=== PATIENT | female | born 1985 | race African-American/Black ===

== ENCOUNTER 2019-04-01 23:52 | Emergency (ER) | payer OTHER, MEDICAID ==
--- NOTE | 2019-04-02 02:00 | ER Document Report ---
ED General - General Chief Complaint: Headache Stated Complaint: MIGRAINE Time Seen by Provider: 04/02/19 01:33 Primary Care Provider: LILLIAN MARQUEZ [Primary Care Provider] - Follow up as needed Notes: 33-year-old black female arrives with a female friend with chief complaint of having nausea and vomiting today and diffuse left temporal headache with left eye pain and photophobia and history of similar symptoms in 2012 when she had surgery and open hour while she was in the [place]. She has not had such a severe migraine since that time. She denies any sore throat nuchal rigidity cough or cold abdominal pain. She does have chronic low back pain and upper back pain and chronic neck pain. Patient reports this was present since [employer] . Patient reports she has no sick animals but does have a rodolfo a bearded lizard a painted turtle and a snake and chickens and ducks which she does feed. The patient denies any diarrhea. TRAVEL OUTSIDE OF THE [place] IN LAST 30 DAYS: No - HPI Onset: This morning Onset/Duration: Persistent Quality of pain: Achy Severity: Mild Pain Level: 1 Associated symptoms: Headache, Nausea, Vomiting Exacerbated by: Movement Relieved by: Remaining still Similar symptoms [facility]: [facility] Recently seen / treated by doctor: No - Related Data Allergies/Adverse Reactions: hydromorphone [From Dilaudid] Adverse Reaction (Verified 04/02/19 03:34) Past Medical History - General Information source: Patient - Social History Smoking Status: Current Every Day Smoker Cigarette use (# per day): Yes Chew tobacco use (# tins/day): No Smoking Education Provided: Yes Frequency of alcohol use: None Drug Abuse: None Lives with: Family Family History: Reviewed & Not Pertinent Patient has suicidal ideation: No Patient has homicidal ideation: No Review of Systems - Review of Systems Constitutional: See HPI, Fever, Malaise, Weakness EENT: See HPI, Eye pain, Blurred vision, Sinus discharge Cardiovascular: No symptoms reported Respiratory: No symptoms reported Gastrointestinal: No symptoms reported Genitourinary: No symptoms reported Female Genitourinary: No symptoms reported Musculoskeletal: No symptoms reported Skin: No symptoms reported Hematologic/Lymphatic: No symptoms reported Neurological/Psychological: See HPI, Headaches Physical Exam - Vital signs Vitals: Temp Pulse Resp BP Pulse Ox 98.1 F 79 17 128/80 H 100 04/02/19 00:27 04/02/19 00:27 04/02/19 00:27 04/02/19 00:27 04/02/19 00:27 Interpretation: Normal - General General appearance: Alert In distress: Mild - HEENT Head: Normocephalic Eyes: Normal Conjunctiva: Normal Cornea: Normal Extraocular movements intact: Yes Eyelashes: Normal Pupils: PERRL Sinus: Frontal, Tenderness Nasal: Normal Mouth/Lips: Normal Mucous membranes: Normal Pharynx: Normal Neck: Normal - Respiratory Respiratory status: No respiratory distress Chest status: Nontender Breath sounds: Normal Chest palpation: Normal - Cardiovascular Rhythm: Regular Heart sounds: Normal auscultation Murmur: No Friction rub: No Gold's crunch: No - Abdominal Inspection: Normal Distension: No distension Bowel sounds: Normal Tenderness: Nontender Organomegaly: No organomegaly - Back Back: Normal - Extremities General upper extremity: Normal inspection General lower extremity: Normal inspection - Neurological Neuro grossly intact: Yes Cognition: Normal Orientation: AAOx4 Kvng Coma Scale Eye Opening: Spontaneous Kvng Coma Scale Verbal: Oriented Speech: Normal Cranial nerves: Normal Cerebellar coordination: Normal Motor strength normal: LUE, RUE, LLE, RLE - Psychological Associated symptoms: Normal affect - Skin Skin Temperature: Warm Skin Moisture: Dry Course - Vital Signs Vital signs: Temp Pulse Resp BP Pulse Ox 98.1 F 79 17 128/80 H 100 04/02/19 00:27 04/02/19 00:27 04/02/19 00:27 04/02/19 00:27 04/02/19 00:27 - Laboratory Result Diagrams: 04/02/19 02:00 04/02/19 02:00 Laboratory results interpreted by me: 04/02/19 04/02/19 02:00 02:00 Seg Neutrophils % 81.1 H Urine Blood MODERATE H Ur Leukocyte Esterase MODERATE H - Diagnostic Test Radiology reviewed: Reports reviewed Critical Care Note - Critical Care Note Total time excluding time spent on procedures (mins): 90 Comments: I rechecked patient's condition at 0 258 and she advises her headache has improved but still has some positive photophobia. I advised her of the lab reports and of the fact that she will be receiving some antibiotics IV; patient around 0 315 exhibited left periorbital allergic edema after Dilaudid Discharge - Discharge Clinical Impression: Allergic dermatitis Cephalgia Qualifiers: Headache type: unspecified Headache chronicity pattern: acute headache Intractability: not intractable Qualified Code(s): R51 - Headache UTI (urinary tract infection) Qualifiers: Urinary tract infection type: acute cystitis Hematuria presence: without hematuria Qualified Code(s): N30.00 - Acute cystitis without hematuria Condition: Good Disposition: HOME, SELF-CARE Additional Instructions: Follow-up with personal doctor this week return to ER as needed take medicines as directed encourage fluids; alert pharmacy @ dilaudid allergy Prescriptions: Ciprofloxacin HCl [Cipro 500 mg Tablet] 500 mg PO BID #20 tablet Cyproheptadine HCl [Periactin 4 Mg Tablet] 4 mg PO HSP PRN #30 tablet PRN Reason: Referrals: [facility] [Primary [facility]] - Follow up as needed
[2019-04-02] MEDS ORDERED: PROMETHAZINE HCL INJ 25 MG/1 ML VIAL IV ONE (02:06)
[2019-04-02] MEDS ORDERED: HYDROMORPHONE HCL INJ/PF 2 MG/ML AMPULE IV ONE (02:06)
[2019-04-02] MEDS ORDERED: NORMAL SALINE 1000 ML 1,000 ML IV ONE (02:07)
[2019-04-02 02:14] LABS: ABSOLUTE LYMPHOCYTES (AUTO) 1.3 10^3/uL (0.5-4.7); ABSOLUTE MONOCYTES (AUTO) 0.4 10^3/uL (0.1-1.4); ABSOLUTE NEUT (AUTO) 7.6 10^3/uL (1.7-8.2); BASOPHILS % (AUTO) 0.3 % (0-2); EOSINOPHILS % (AUTO) 0.4 % (0-6); HEMATOCRIT 38.3 % (36.0-47.0); HEMOGLOBIN 13.2 g/dL (12.0-15.5); LYMPHOCYTES % (AUTO) 13.8 % (13-45); MEAN CORPUSCULAR HEMOGLOBIN 29.2 pg (27.0-33.4); MEAN CORPUSCULAR HGB CONC 34.5 g/dL (32.0-36.0); MEAN CORPUSCULAR VOLUME 85 fl (80-97); MONOCYTES % (AUTO) 4.4 % (3-13); PLATELET COUNT 243 10^3/uL (150-450); RED BLOOD COUNT 4.53 10^6/uL (3.72-5.28); RED CELL DISTRIBUTION WIDTH 13.9 % (11.5-14.0); SEGMENTED NEUTROPHILS % (AUTO) 81.1 % (42-78); TOTAL CELLS COUNTED % (AUTO) 100 %; WHITE BLOOD COUNT 9.4 10^3/uL (4.0-10.5)
[2019-04-02 02:24] LABS: APPEARANCE,URINE SLIGHTLY-CLOUDY; BILIRUBIN,URINE NEGATIVE (NEGATIVE); COLOR,URINE STRAW; GLUCOSE, URINE NEGATIVE (NEGATIVE); KETONES,URINE NEGATIVE (NEGATIVE); LEUKOCYTE ESTERASE,URINE MODERATE (NEGATIVE); NITRITE,URINE NEGATIVE (NEGATIVE); PROTEIN,URINE NEGATIVE (NEGATIVE); URINE SPECIFIC GRAVITY 1.004; UROBILINOGEN,URINE NEGATIVE mg/dL (<2.0)
[2019-04-02 02:32] LABS: URINE AMPHETAMINES SCREEN NEGATIVE; URINE BARBITURATES SCREEN NEGATIVE; URINE BENZODIAZEPINES SCREEN NEGATIVE; URINE COCAINE SCREEN NEGATIVE; URINE MARIJUANA (THC) SCREEN NEGATIVE; URINE METHADONE SCREEN NEGATIVE; URINE PHENCYCLIDINE SCREEN NEGATIVE
[2019-04-02 02:37] LABS: ALBUMIN 3.9 g/dL (3.5-5.0); ALKALINE PHOSPHATASE 74 U/L (38-126); ANION GAP 8 (5-19); ASPARTATE AMINO TRANSFERASE 19 U/L (14-36); BILIRUBIN,TOTAL 0.3 mg/dL (0.2-1.3); BLOOD UREA NITROGEN 9 mg/dL (7-20); CALCIUM 9.3 mg/dL (8.4-10.2); CARBON DIOXIDE 26 mmol/L (22-30); CHLORIDE 105 mmol/L (98-107); GLUCOSE 104 mg/dL (75-110); POTASSIUM 4.1 mmol/L (3.6-5.0); TOTAL PROTEIN 7.2 g/dL (6.3-8.2)
[2019-04-02] MEDS ORDERED: CEFTRIAXONE 1 GM/D5W RTU 1 GM/50 ML RTUPB IV ONE (02:57)
[2019-04-02 02:59] LABS: A TYPE INFLUENZA AG NEGATIVE (NEGATIVE); B INFLUENZA AG NEGATIVE (NEGATIVE)
--- NOTE | 2019-04-02 03:25 | RADIOLOGY REPORT (SQ) ---
EXAM DESCRIPTION: XR CHEST 1 VIEW COMPLETED DATE/TME: 04/02/2019 02:05 CLINICAL HISTORY: 33 years Female, wallace COMPARISON: None. NUMBER OF VIEWS/TECHNIQUE: 1/AP FINDINGS: Increased lung volume, clear parenchyma, normal cardiac silhouette, and intact bony thorax. IMPRESSION: No acute cardiopulmonary findings.
[2019-04-02] MEDS ORDERED: DIPHENHYDRAMINE HCL 50 MG/ML VIAL IV ONE (03:28)
--- NOTE | 2019-04-02 04:01 | RADIOLOGY REPORT (SQ) ---
EXAM: CT Head and Cervical Spine Without Intravenous Contrast EXAM DATE/TIME: 04/02/2019 3:09 AM CLINICAL HISTORY: The patient is 33 years old and is Female; wallace TECHNIQUE: Axial computed tomography images of the head/brain and cervical spine without intravenous contrast. Sagittal and coronal reformatted images were created and reviewed. This CT exam was performed using one or more of the following dose reduction techniques: automated exposure control, adjustment of the mA and/or kV according to patient size, and/or use of iterative reconstruction technique. COMPARISON: No relevant prior studies available. FINDINGS: BRAIN: Unremarkable. No obvious signs of acute infarct. No evidence of intracranial mass. VENTRICLES: Unremarkable. No ventriculomegaly. SKULL: No acute fracture. SINUSES: Unremarkable as visualized. No acute sinusitis. MASTOID AIR CELLS: Unremarkable as visualized. No mastoid effusion. VERTEBRAE: Unremarkable. No acute fracture. Normal alignment. DISCS/SPINAL CANAL/NEURAL FORAMINA: Intervertebral disk heights are well-maintained. No spinal canal stenosis appreciated. SOFT TISSUES: No acute findings visualized. No significant soft tissue swelling or subcutaneous hematoma formation. IMPRESSION: No acute findings in the brain or cervical spine.
[2019-04-02 04:38] VITALS: BP 125/73
== END 2019-04-02 04:44 | disposition home or self-care (01) ==
LOC: ER 23:52
DX: N30.00 Acute cystitis without hematuria (principal); L23.9 Allergic contact dermatitis, unspecified cause; R51 Headache; R11.2 Nausea with vomiting, unspecified; H57.12 Ocular pain, left eye; R53.1 Weakness; R50.9 Fever, unspecified; F17.210 Nicotine dependence, cigarettes, uncomplicated; Z88.6 Allergy status to analgesic agent
CPT/HCPCS: 99285; 96374; 96375; 36415; 87040; 87070; 87880; 85025; 80053; 81001; 80307; 87804; 71045; 70450; 72125; J1200; J1170; J2550; J7030; J0696

== ENCOUNTER 2019-04-07 19:33 | Emergency (ER) | payer OTHER, MEDICAID ==
[2019-04-07] MEDS ORDERED: MAG HYDROX/AL HYDROX/SIMETH SUSP 30 ML UDCUP PO ONE (20:21)
[2019-04-07] MEDS ORDERED: METOCLOPRAMIDE HCL ORAL SOLN 10 MG/10 ML UDCUP PO ONE (20:21)
[2019-04-07] MEDS ORDERED: LIDOCAINE 2% VISCOUS SOLN 15 ML UDCUP PO ONE (20:21)
--- NOTE | 2019-04-07 20:21 | ER Document Report ---
ED Medical Screen (RME) - General Chief Complaint: Chest Pain Stated Complaint: CHEST PAIN Time Seen by Provider: 04/07/19 20:11 Primary Care Provider: LILLIAN MARQUEZ [Primary Care Provider] - Follow up as needed Notes: Patient is a 33-year-old female who presents to the emergency department with a chief complaint of "chest burning." States that she has had her symptoms on and off. She was evaluated in the emergency department on Monday and was diagnosed with a urinary tract infection. Patient states that she has been taking her medication as prescribed. Exam: S1, S2. I have greeted and performed a rapid initial assessment of this patient. A comprehensive ED assessment and evaluation of the patient, analysis of test results and completion of medical decision making process will be conducted by an additional ED providers. TRAVEL OUTSIDE OF THE [place] IN LAST 30 DAYS: No - Related Data Allergies/Adverse Reactions: hydromorphone [From Dilaudid] Adverse Reaction (Verified 04/02/19 03:34) Past Medical History - Social History Chew tobacco use (# tins/day): No Frequency of alcohol use: None Drug Abuse: None Physical Exam - Vital signs Vitals: Temp Pulse Resp BP Pulse Ox 98.3 F 77 16 150/86 H 100 04/07/19 19:58 04/07/19 19:58 04/07/19 19:58 04/07/19 19:58 04/07/19 19:58 Course - Vital Signs Vital signs: Temp Pulse Resp BP Pulse Ox 98.3 F 77 16 150/86 H 100 04/07/19 19:58 04/07/19 19:58 04/07/19 19:58 04/07/19 19:58 04/07/19 19:58 Doctor's Discharge - Discharge Referrals: JIMMY,LILLIAN [Primary Care Provider] - Follow up as needed
[2019-04-07 20:53] LABS: ABSOLUTE EOSINOPHILS # (AUTO) 0.1 10^3/uL (0.0-0.6); ABSOLUTE LYMPHOCYTES (AUTO) 1.1 10^3/uL (0.5-4.7); ABSOLUTE MONOCYTES (AUTO) 0.4 10^3/uL (0.1-1.4); ABSOLUTE NEUT (AUTO) 4.4 10^3/uL (1.7-8.2); BASOPHILS % (AUTO) 0.1 % (0-2); EOSINOPHILS % (AUTO) 1.2 % (0-6); HEMOGLOBIN 12.3 g/dL (12.0-15.5); LYMPHOCYTES % (AUTO) 18.2 % (13-45); MEAN CORPUSCULAR HEMOGLOBIN 29.9 pg (27.0-33.4); MEAN CORPUSCULAR HGB CONC 35.3 g/dL (32.0-36.0); MEAN CORPUSCULAR VOLUME 85 fl (80-97); MONOCYTES % (AUTO) 6.8 % (3-13); PLATELET COUNT 214 10^3/uL (150-450); RED BLOOD COUNT 4.13 10^6/uL (3.72-5.28); RED CELL DISTRIBUTION WIDTH 13.9 % (11.5-14.0); SEGMENTED NEUTROPHILS % (AUTO) 73.7 % (42-78); TOTAL CELLS COUNTED % (AUTO) 100 %
--- NOTE | 2019-04-07 21:04 | RADIOLOGY REPORT (SQ) ---
XR CHEST 2 VIEWS CLINICAL STATEMENT: chest "burning" COMPARISON: 04/02/2019 FINDINGS: Cardiomediastinal silhouette is within normal limits. There is no focal lung consolidation or pleural effusion. No evidence of pulmonary edema or pneumothorax. IMPRESSION: No acute cardiopulmonary disease.
[2019-04-07 21:13] LABS: ALBUMIN 4.3 g/dL (3.5-5.0); ALKALINE PHOSPHATASE 87 U/L (38-126); ANION GAP 10 (5-19); ASPARTATE AMINO TRANSFERASE 20 U/L (14-36); BILIRUBIN,TOTAL 0.4 mg/dL (0.2-1.3); BLOOD UREA NITROGEN 8 mg/dL (7-20); CALCIUM 9.3 mg/dL (8.4-10.2); CARBON DIOXIDE 25 mmol/L (22-30); CHLORIDE 104 mmol/L (98-107); GLUCOSE 80 mg/dL (75-110); POTASSIUM 3.5 mmol/L (3.6-5.0); TOTAL PROTEIN 7.9 g/dL (6.3-8.2)
--- NOTE | 2019-04-07 22:49 | EKG REPORT ---
SEVERITY:- NORMAL ECG - SINUS RHYTHM : Confirmed by: Pastora Arenas MD 07-Apr-2019 22:49:17
--- NOTE | 2019-04-07 23:47 | ER Document Report ---
ED General - General Chief Complaint: Chest Pain Stated Complaint: CHEST PAIN Time Seen by Provider: 04/07/19 20:11 Primary Care Provider: DENEEN MERCER MD [ACTIVE STAFF] - Follow up as needed NILA PACE MD [ACTIVE STAFF] - Follow up as needed [facility] [Primary [facility]] - Follow up as needed Mode of Arrival: Ambulatory Information source: Patient TRAVEL OUTSIDE OF THE [place] IN LAST 30 DAYS: No - HPI Onset: Other - over the last week Onset/Duration: Gradual Quality of pain: Sharp Severity: Mild Pain Level: 2 Associated symptoms: Nonproductive cough Exacerbated by: Denies Relieved by: Other - movement of her left arm sometimes helps with the pain Similar symptoms previously: No Recently seen / treated by doctor: No Notes: 33 year old female with no significant PMH here for one week of left sided chest pain. The patient says the pain feels like a sharp burning sensation. She denies trauma to her chest, nausea, vomiting, sweating, fevers, chills, shortness of b reath but she does have a mild cough. The patient has had a right sided breast mass which needed resection in the past (it ended up being non-malignant). The patient has not felt any lumps or bumps on the left. - Related Data Allergies/Adverse Reactions: hydromorphone [From Dilaudid] Adverse Reaction (Verified 04/07/19 20:57) Past Medical History - General Information source: Patient - Social History Smoking Status: Never Smoker Chew tobacco use (# tins/day): No Frequency of alcohol use: None Drug Abuse: None Lives with: Alone Family History: Reviewed & Not Pertinent Patient has suicidal ideation: No Patient has homicidal ideation: No Review of Systems - Review of Systems Constitutional: No symptoms reported EENT: No symptoms reported Cardiovascular: Chest pain - left sided Respiratory: Cough Gastrointestinal: No symptoms reported Genitourinary: No symptoms reported Female Genitourinary: No symptoms reported Musculoskeletal: No symptoms reported Skin: No symptoms reported Hematologic/Lymphatic: No symptoms reported Neurological/Psychological: No symptoms reported -: Yes All other systems reviewed and negative Physical Exam - Vital signs Vitals: Temp Pulse Resp BP Pulse Ox 98.3 F 77 16 150/86 H 100 04/07/19 19:58 04/07/19 19:58 04/07/19 19:58 04/07/19 19:58 04/07/19 19:58 - Notes Notes: GENERAL: Well-appearing, well-nourished and in no acute distress. HEAD: Atraumatic, normocephalic. EYES: Pupils equal round and reactive to light, extraocular movements intact, sclera anicteric, conjunctiva are normal. ENT: Nares patent, oropharynx clear without exudates. Moist mucous membranes. NECK: Normal range of motion, supple without lymphadenopathy or JVD. LUNGS: Breath sounds clear to auscultation bilaterally and equal. No wheezes rales or rhonchi. HEART: Regular rate and rhythm without murmurs, rubs or gallops. CHEST: mildly tender over left anterior chest wall with no palpable masses. No breast masses felt either in this area. ABDOMEN: Soft, nontender, normoactive bowel sounds. No guarding, no rebound. No masses appreciated. EXTREMITIES: Normal range of motion, no pitting or edema. No clubbing or cyanosis. NEUROLOGICAL: Cranial nerves II through XII grossly intact. Normal speech, normal gait. PSYCH: Normal mood, normal affect. SKIN: Warm, Dry, normal turgor, no rashes or lesions noted. Course - Re-evaluation Re-evalutation: 04/07/19 23:55 The patient has had 1 week of left sided anterior chest pain. She looks very well in the ER, she is PERC negative (making PE unlikely) and she is low risk for ACS (EKG and Trop ordered in triage completely normal). Patient likely has musculoskeletal chest pain as it is made worse with palpation. No breast or chest masses palpated by me on exam. Chest Xray normal in appearance today. Will prescribe Naproxen and refer patient to a PCP. - Vital Signs Vital signs: Temp Pulse Resp BP Pulse Ox 98.3 F 77 19 150/86 H 100 04/07/19 19:58 04/07/19 19:58 04/07/19 22:00 04/07/19 19:58 04/07/19 22:00 - Laboratory Result Diagrams: 04/07/19 20:37 04/07/19 20:37 Laboratory results interpreted by me: 04/07/19 04/07/19 20:37 20:37 Hct 35.0 L Potassium 3.5 L - Diagnostic Test Radiology reviewed: Image reviewed, Reports reviewed - EKG Interpretation by Me EKG shows normal: Sinus rhythm, [place], Intervals, QRS Complexes, ST-T Waves Rate: Normal Rhythm: NSR Discharge - Discharge Clinical Impression: Costochondral pain Chest pain Qualifiers: Chest pain type: unspecified Qualified Code(s): R07.9 - Chest pain, unspecified Condition: Stable Disposition: HOME, SELF-CARE Instructions: Chest Wall Pain ([facility]), Costochondritis ([facility]), Chest Pain of Unclear Cause ([facility]) Additional Instructions: Use Naproxen for pain along with over the counter Tylenol and a heating pad. Follow up with one of the primary care doctors listed or with a primary care doctor of your choosing for further work up. You had blood work, a chest xray, and an EKG in the ER today. Prescriptions: Naproxen 500 mg PO BID PRN #14 tablet PRN Reason: Referrals: [facility] [Primary Care [facility]] - Follow up as needed DENEEN MERCER MD [ACTIVE STAFF] - Follow up as needed NILA PACE MD [ACTIVE STAFF] - Follow up as needed
[2019-04-08 00:41] VITALS: BP 132/91
== END 2019-04-08 00:41 | disposition home or self-care (01) ==
LOC: ER 19:33
DX: R07.1 Chest pain on breathing (principal); R07.9 Chest pain, unspecified; R05 Cough; Z88.8 Allergy status to other drugs, medicaments and biological substances
CPT/HCPCS: 93005; 99285; 36415; 85025; 80053; 84484; 71046; 93010; J3490

== ENCOUNTER → 2020-02-19 | Outpatient (CLI) | payer MEDICAID ==
--- NOTE | 2020-02-19 11:40 | WOMENS IMAGING REPORT ---
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 TECHNIQUE: Dynamic and static herr-scale images acquired of the thyroid gland. Selected additional c olor/power Doppler images recorded. All images stored to PACS. LIMITATIONS: None. FINDINGS: RIGHT LOBE: Normal size. Homogeneous echotexture. There are 2 closely opposed similar-ap pearing isoechoic solid nodules with smooth margins, both approximately 15 x 12 x 12 mm. TI-RADS 3. LEFT LOBE: Normal size. Homogeneous echotexture. No cystic or solid masses. ISTHMUS: Normal size. Homogeneous echotexture. No cystic or solid masses. OTHER: No other significant finding. IMPRESSION: 2 similar appearing solid nodules in the right lobe. COMMENT: The [employer] ([employer]) Thyroid Imaging Reporting And Data System (TI-RADS ) is an ultrasound feature based summed scoring system of risk categorization and management recommen dations for thyroid nodules. TI-RADS assessment categories are as follows: 0 - Incomplete exam: Additional imaging or comparison to prior examinations recommended. 1. - Benign: Fine-needle aspiration or follow-up not routinely recommended in the absence of clinical change. 2. - Not suspicious: Fine-needle aspiration or follow-up not routinely recommended in the absence of clinical change. 3. - Mildly suspicious: Fine-needle aspiration recommended if greater than or equal to 2.5 cm in size . Ultrasound follow-up recommended if greater than or equal to 1.5 cm in size. Follow-up at 1, 3, and 5 years. 4. - Moderately suspicious: Fine-needle aspiration recommended if greater than or equal to 1.5 cm in size. Ultrasound follow-up recommended if greater than or equal to 1.0 cm in size. Follow-up at 1, 2, 3, and 5 years. 5. - Highly suspicious: Fine-needle aspiration recommended if greater than or equal to 1.0 cm in size . Ultrasound follow-up recommended if greater than or equal to 0.5 cm in size. Follow-up at 1, 2, 3, and 5 years. TECHNICAL DOCUMENTATION: JOB ID: [id number] [employer]- All Rights Reserved Reading location - IP/workstation name: [email or web address]
== END ==
LOC: WI 08:57
PROVIDERS: ATTEND Nurse Practitioner Family
DX: E01.0 Iodine-deficiency related diffuse (endemic) goiter (principal)
CPT/HCPCS: 76536